=== PATIENT | male | born 2005 | race Caucasian/White ===

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

== ENCOUNTER 2024-06-23 21:17 | Emergency (ER) | payer OTHER, SELFPAY ==
[2024-06-23 21:18] VITALS: BP 155/84; PULSE 84; RESP 16; TEMP 36.3; O2SAT 99; BMI 27.0
--- NOTE | 2024-06-23 21:36 | RAD_ITS ---
INDICATION: injury EXAMINATION/TECHNIQUE: X-RAY - LEFT HAND XR Fingers Min 2 Views COMPARISON: None. FINDINGS: Acute slightly comminuted and nondisplaced fracture of the distal tuft of the distal third phalanx. No blastic or lytic lesions. No degenerative changes are seen. Soft tissue swelling of the third digit. RAD/Finger(s) Min 2 Views IMPRESSION: Acute slightly comminuted and nondisplaced fracture of the distal tuft of the distal third phalanx. Electronically Signed: Chandan Fisher MD at 22:08 EDT ,
[2024-06-23] MEDS: HYDROcodone Bitartrate/Apap 5/325 Tablet PO (21:41)
[2024-06-23] MEDS: Lidocaine 1% (20 ml mdv) 20 ML Vial INFILT (21:42)
[2024-06-23] MEDS: Cephalexin 250 MG Capsule 500 MG PO (21:42)
[2024-06-23 23:07] VITALS: BP 134/82; PULSE 63; RESP 18; TEMP 36.8; O2SAT 95
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
== END 2024-06-23 23:10 | disposition home or self-care (01) ==
PROVIDERS: Emergency Provider Emergency Medicine; PCP Pediatrics; Visit Provider Emergency Medicine
DX: S62.663B Nondisplaced fracture of distal phalanx of left middle finger, initial encounter for open fracture (principal); W23.1XXA Caught, crushed, jammed, or pinched between stationary objects, initial encounter; Y99.0 Civilian activity done for income or pay
CPT/HCPCS: 11760; 12001; 73140; 99284

== ENCOUNTER → 2024-07-06 | Outpatient (CLI) | payer OTHER, SELFPAY ==
--- NOTE | 2024-07-06 16:30 | RAD_ITS ---
INDICATION: finger injury EXAMINATION/TECHNIQUE: X-RAY - LEFT XR Hand Min 3 Views COMPARISON: None. FINDINGS: Acute comminuted minimally displaced fracture of the distal tuft of the third distal phalanx. No blastic or lytic lesions. No degenerative changes are seen. Soft tissue swelling of the third digit. RAD/Hand Min 3 Views IMPRESSION: Acute comminuted minimally displaced fracture of the distal tuft of the third distal phalanx. Electronically Signed: Chandan Fisher MD at 19:27 EDT ,
== END | disposition home or self-care (01) ==
LOC: RAD 16:26
PROVIDERS: PCP Pediatrics; Referring Provider Surgery Plastic and Reconstructive Surgery; Visit Provider Surgery Plastic and Reconstructive Surgery
DX: S62.603B Fracture of unspecified phalanx of left middle finger, initial encounter for open fracture (principal); X58.XXXA Exposure to other specified factors, initial encounter
CPT/HCPCS: 73130